=== PATIENT | female | born 1990 | race American Indian/Alaskan Native ===

== ENCOUNTER 2021-12-07 13:43 | Day surgery (SDC) | payer OTHER ==
[2021-12-07] MEDS ORDERED: hydrALAZINE 20 MG/ML VIAL SLOW IVP PRN (15:07)
== END 2021-12-07 17:35 | disposition home or self-care (01) ==
LOC: CSHLD/OP 13:43
PROVIDERS: ATTEND Obstetrics & Gynecology
DX: O36.8120 Decreased fetal movements, second trimester, not applicable or unspecified (principal); Z3A.27 27 weeks gestation of pregnancy
CPT/HCPCS: 76815; 99282

== ENCOUNTER 2022-03-07 08:41 | Inpatient (IN) | payer OTHER ==
[2022-03-06 12:33] LABS: #Monocytes 0.6 10x3/uL (0.0-1.1); #Neutrophils 4.2 10x3/uL (1.5-8.4); %Basophils 0.3 % (0.0-2.0); %Eosinophils 0.4 % (0.0-6.0); %Lymphocytes 26.4 % (18.0-47.0); %Monocytes 9.4 % (0.0-10.0); %Neutrophils 63.1 % (40.0-75.0); Hemoglobin 14.2 g/dL (12.0-15.5); Hep B Surf Ag Non-Reactive S/CO (NonReactive); Mean Corpuscular HGB CONC 37.1 g/dL (32.0-36.0); Mean Corpuscular Hemoglobin 32.1 pg (27.0-33.0); Mean Corpuscular Volume 86.7 fl (81.6-98.3); Mean Platelet Volume 11.2 fl (7.4-10.4); Platelet Count 215 10x3/uL (150-450); RBC Distribution Width 12.4 % (11.5-14.5); Red Blood Cell (RBC) Count 4.42 10x6/uL (3.90-5.03); Syphilis Antibody Nonreactive (Nonreactive); Syphilis Antibody Index 0.04 S/CO (<1.00 Non-Reactive); White Blood Cell (WBC) Count 6.7 10x3/uL (3.5-10.5)
[2022-03-06 13:14] LABS: SARS-CoV-2 NAA Rapid Test Not Detected (NotDetected)
[2022-03-08] MEDS ORDERED: Ondansetron PF 4 MG/2 ML Vial IVP PRN ×3 (10:24→16:10)
[2022-03-08] MEDS ORDERED: hydrALAZINE 20 MG/ML VIAL SLOW IVP PRN ×2 (10:24→14:39)
[2022-03-08] MEDS ORDERED: Promethazine HCl 25 MG/ML VIAL IM PRN ×3 (10:24→16:10)
[2022-03-08] MEDS ORDERED: Bicitra 30 ML UDCUP PO PRN (10:24)
[2022-03-08] MEDS ORDERED: Famotidine/PF 20 mg/2ml Vial SLOW IVP PRN (10:24)
[2022-03-08] MEDS ORDERED: Lactated Ringer's 1,000 ML IV SCH (10:24)
[2022-03-08] MEDS ORDERED: CEFAZOLIN 2 GM in Sodium Chloride 0.9% 100 ML IVPB SCH (10:24)
[2022-03-08 10:58] VITALS: BMI 24.2
[2022-03-08] MEDS ORDERED: PHENYLEPHRINE-NS 100 MCG/ML 10 ML SYRINGE ONE (11:31)
[2022-03-08] MEDS ORDERED: Morphine PF 10 MG/10 ML VIAL ONE (11:31)
[2022-03-08] MEDS ORDERED: Oxytocin 10 UNITS/ML VIAL ONE (11:31)
[2022-03-08] MEDS ORDERED: Fentanyl 100 MCG/2 ML VIAL ONE (12:15)
[2022-03-08] MEDS ORDERED: Midazolam HCl 2 mg/2 ml Vial ONE (12:16)
[2022-03-08] MEDS ORDERED: NS w/ Oxytocin 30 units 500 ML ONE (13:29)
[2022-03-08] MEDS ORDERED: Ketorolac Tromethamine 30 MG/ML VIAL ONE (14:32)
[2022-03-08] MEDS ORDERED: Bisacodyl 10 MG SUPP PR PRN (14:39)
[2022-03-08] MEDS ORDERED: Lanolin Ointment 7 GM TUBE TOP PRN (14:39)
[2022-03-08] MEDS ORDERED: HYDROcodone/Acetaminophen 5/325 mg Tablet PO PRN ×2 (14:39)
[2022-03-08] MEDS ORDERED: diphenhydrAMINE 25 MG CAP PO PRN (14:39)
[2022-03-08] MEDS ORDERED: Acetaminophen 325 MG TAB PO PRN (14:39)
[2022-03-08] MEDS ORDERED: Zolpidem Tartrate 5 MG TAB PO PRN (14:39)
[2022-03-08] MEDS ORDERED: Ketorolac Tromethamine 30 MG/ML VIAL IVP PRN ×2 (15:35→16:10)
[2022-03-08] MEDS ORDERED: Naloxone HCl 0.4 mg/ml Vial IV PRN ×4 (15:45→16:10)
[2022-03-08] MEDS ORDERED: diphenhydrAMINE 50 MG/ML VIAL IVP PRN ×2 (15:45→16:10)
[2022-03-08] MEDS ORDERED: Communication Order-Pharmacy FS SCH ×2 (15:45→16:15)
[2022-03-08] MEDS ORDERED: Moisturizing Cream (Eucerin) 113 GM JAR TOP PRN ×2 (15:45→16:10)
[2022-03-08] MEDS ORDERED: Promethazine HCl 25 MG SUPP PR PRN ×2 (15:45→16:10)
[2022-03-08] MEDS ORDERED: NO PO,IM,IV OR SC NARCOTICS FOR 12HR EXCEPT BY ANESTHESIA PO SCH (15:45)
[2022-03-08] MEDS ORDERED: Ondansetron HCl/PF 4 MG/2 ML Vial IVP PRN (16:10)
[2022-03-08] MEDS ORDERED: Meperidine HCl/PF 25 MG/ML VIAL SLOW IVP PRN (16:10)
[2022-03-08] MEDS ORDERED: Fentanyl 100 MCG/2 ML VIAL SLOW IVP PRN (16:10)
[2022-03-08] MEDS ORDERED: Naloxone HCl 0.4 mg/ml Vial IVP PRN ×2 (16:10)
[2022-03-08] MEDS ORDERED: Ketorolac Tromethamine 30 MG/ML VIAL IVP SCH (16:15)
[2022-03-08] MEDS: Docusate 100 MG CAP PO SCH (21:46)
[2022-03-09 05:11] LABS: Mean Corpuscular HGB CONC 36.9 g/dL (32.0-36.0); Mean Corpuscular Hemoglobin 32.3 pg (27.0-33.0); Mean Corpuscular Volume 87.4 fl (81.6-98.3); Mean Platelet Volume 11.1 fl (7.4-10.4); Platelet Count 141 10x3/uL (150-450); RBC Distribution Width 12.4 % (11.5-14.5); White Blood Cell (WBC) Count 10.3 10x3/uL (3.5-10.5)
[2022-03-09] MEDS: Docusate 100 MG CAP PO SCH ×2 (07:59→20:56)
[2022-03-09] MEDS: Prenatal Vitamin 1 TAB PO SCH (07:59)
[2022-03-09] MEDS: HYDROcodone/Acetaminophen 5/325 mg Tablet PO PRN ×4 (07:59→20:55)
[2022-03-09] MEDS: Ibuprofen 800 MG TAB PO SCH ×2 (13:32→20:55)
[2022-03-09] MEDS ORDERED: Boostrix 0.5 ML (Tdap) VIAL (>/=7 yrs of age) IM ONE (14:39)
[2022-03-10] MEDS: HYDROcodone/Acetaminophen 5/325 mg Tablet PO PRN ×4 (00:57→21:44)
[2022-03-10] MEDS: Ibuprofen 800 MG TAB PO SCH ×3 (05:22→21:43)
[2022-03-10] MEDS: Simethicone Chewable 80 MG TAB PO PRN ×4 (05:26→21:50)
[2022-03-10] MEDS: Prenatal Vitamin 1 TAB PO SCH (08:52)
[2022-03-10] MEDS: Docusate 100 MG CAP PO SCH ×2 (08:52→21:43)
[2022-03-11] MEDS: HYDROcodone/Acetaminophen 5/325 mg Tablet PO PRN ×2 (05:05→09:38)
[2022-03-11] MEDS: Ibuprofen 800 MG TAB PO SCH (05:05)
[2022-03-11 09:01] VITALS: BP 120/74; TEMP 97.4
[2022-03-11] MEDS: Simethicone Chewable 80 MG TAB PO PRN (09:38)
[2022-03-11] MEDS: Docusate 100 MG CAP PO SCH (09:38)
[2022-03-11] MEDS: Prenatal Vitamin 1 TAB PO SCH (09:38)
== END 2022-03-11 12:40 | disposition home or self-care (01) | DRG 788 ==
LOC: CSHLD 03-08 10:04 → CSHPP 03-08 14:50
PROVIDERS: ADMIT Obstetrics & Gynecology; ATTEND Obstetrics & Gynecology
PROC: 10D00Z1 Extraction of Products of Conception, Low, Open Approach (ICD-10-PCS; principal; 2022-03-08)
DX: O26.893 Other specified pregnancy related conditions, third trimester (principal); Z3A.40 40 weeks gestation of pregnancy; Z37.0 Single live birth; Z20.822 Contact with and (suspected) exposure to COVID-19; Z67.21 Type B blood, Rh negative; F41.9 Anxiety disorder, unspecified; O99.344 Other mental disorders complicating childbirth
CPT/HCPCS: 36415; 51702; 85025; 85027; 86780; 86850; 86900; 86901; 87340; J1885; J2250; J2274; J2590; J3010; U0002

== ENCOUNTER 2022-03-13 15:39 | Emergency (ER) | payer OTHER ==
[~2022-03-13 15:39] MED LIST: Iopamidol 300 61% 100 ML VIAL FS ONE
[2022-03-13 17:13] LABS: #Eosinphils 0.1 10x3/uL (0.0-0.5); #Monocytes 0.6 10x3/uL (0.0-1.1); #Neutrophils 3.7 10x3/uL (1.5-8.4); %Basophils 0.5 % (0.0-2.0); %Eosinophils 2.3 % (0.0-6.0); %Monocytes 10.4 % (0.0-10.0); Hemoglobin 11.5 g/dL (12.0-15.5); Mean Corpuscular HGB CONC 35.7 g/dL (32.0-36.0); Mean Corpuscular Hemoglobin 31.9 pg (27.0-33.0); Mean Corpuscular Volume 89.2 fl (81.6-98.3); Mean Platelet Volume 9.3 fl (7.4-10.4); Platelet Count 256 10x3/uL (150-450); RBC Distribution Width 12.1 % (11.5-14.5); Red Blood Cell (RBC) Count 3.61 10x6/uL (3.90-5.03); White Blood Cell (WBC) Count 6.1 10x3/uL (3.5-10.5)
[2022-03-13 17:17] LABS: ALT (SGPT) 52 U/L (8-55); AST (SGOT) 59 U/L (5-34); Albumin 3.6 g/dL (3.5-5.0); Alkaline Phosphatase 139 U/L (40-110); Anion Gap 11 mmol/L (10-20); BUN (Urea Nitrogen) 7 mg/dL (7.0-18.7); Bilirubin, Total 0.5 mg/dL (0.2-1.2); Calc. Creatinine Clearance 0 mL/min (70-130); Calcium 9.3 mg/dL (7.8-10.44); Carbon Dioxide 25 mmol/L (22-29); Chloride 105 mmol/L (98-107); Estimated GFR 119; Globulin 3.2 g/dL (2.4-3.5); Glucose 85 mg/dL (70-105); Lipase 26 U/L (8-78); Potassium 3.9 mmol/L (3.5-5.1); Protein, Total 6.8 g/dL (6.0-8.3); Sodium 137 mmol/L (136-145)
== END 2022-03-13 18:58 | disposition home or self-care (01) ==
LOC: CSHERS 15:39
DX: G89.18 Other acute postprocedural pain (principal); R10.12 Left upper quadrant pain
CPT/HCPCS: 74177; 80053; 83690; 85025; 94760; Q9967